=== PATIENT | female | born 1975 | race Caucasian/White ===

== ENCOUNTER 2017-08-21 13:17 | Emergency (ER) | payer OTHER ==
[~2017-08-21] VITALS: Ht 152.4 cm; Wt 125.0 kg
[2017-08-21] MEDS ORDERED: SUCRALFATE1 GM PO (15:44)
[2017-08-21] MEDS ORDERED: HYDROXYZ PAM25 MG PO (15:46)
[2017-08-21] MEDS ORDERED: NAPROXEN250 MG PO (15:46)
[2017-08-21] MEDS ORDERED: DULOXETINE HCL30 MG PO (15:47)
[2017-08-21] MEDS ORDERED: CYMBALTA60 MG PO (15:47)
[2017-08-21 16:35] VITALS: BP 118/66
== END 2017-08-21 16:35 | disposition home or self-care (01) | DRG 103 ==
LOC: ED 13:17
DX: R51 Headache (principal)

== ENCOUNTER 2017-12-07 10:13 | Emergency (ER) | payer OTHER ==
[~2017-12-07] VITALS: Ht 152.4 cm; Wt 116.4 kg
[~2017-12-07 10:13] MED LIST: ALBUTERO1 IN; BACTRIM DS1 TAB PO; CYMBALTA60 MG PO; DULOXETINE HCL30 MG PO; HYDROXYZ PAM25 MG PO; NAPROXEN250 MG PO; SUCRALFATE1 GM PO
[2017-12-07 11:10] LABS: HEMATOCRIT 39.7 % (37.0-47.0); HEMOGLOBIN 13.6 g/dl (12.0-16.0); IMMATURE GRANULOCYTES 0.5 % (0.0-5.0); MEAN CELL VOLUME 88.2 fL CALC (80.0-100.0); MEAN CORPUSCULAR HGB 30.2 pG CALC (26.0-32.0); MEAN CORPUSCULAR HGB CONC 34.3 g/L CALC (32.0-36.0); NEUT# 1.87 thou/uL (2.00-7.15); RED BLOOD COUNT 4.5 mill/uL (4.20-5.60); RED CELL DISTRI WIDTH 13.3 % (11.5-15.5)
[2017-12-07 11:21] LABS: ANION GAP 15 (6-22 (CALC)); BUN 10 mg/dL (7-17); BUN/CREATININE RATIO 17 (12-20 (CALC)); CARBON DIOXIDE 29 mmol/l (22-30); CHLORIDE 101 mmol/l (95-108); CREATININE 0.6 mg/dL (0.5-1.0); GFR > 60 ML/MIN (>=60 (CALC)); GFR FOR AFR.AMER. > 60 ML/MIN (>=60 (CALC)); POTASSIUM 3.7 mmol/l (3.5-5.1); SODIUM 141 mmol/l (137-146)
[2017-12-07] MEDS ORDERED: OMNICEF300 M1 PO (12:33)
[2017-12-07] MEDS ORDERED: BACTRIM DS1 TAB PO (12:33)
[2017-12-07 12:51] VITALS: BP 128/85
== END 2017-12-07 12:51 | disposition home or self-care (01) ==
LOC: ED 10:13
PROVIDERS: Family Medicine
DX: H00.031 Abscess of right upper eyelid (principal); M79.7 Fibromyalgia; D68.2 Hereditary deficiency of other clotting factors; F41.9 Anxiety disorder, unspecified; J45.909 Unspecified asthma, uncomplicated; H53.141 Visual discomfort, right eye; R22.0 Localized swelling, mass and lump, head
CPT/HCPCS: Q9967

== ENCOUNTER 2017-12-08 03:55 | Emergency (ER) | payer OTHER ==
[~2017-12-08] VITALS: Ht 152.4 cm; Wt 124.8 kg
[~2017-12-08 03:55] MED LIST changes: +OMNICEF300 M1 PO
[2017-12-08 06:31] VITALS: BP 164/92
== END 2017-12-08 06:31 | disposition home or self-care (01) ==
LOC: ED 03:55
DX: H00.031 Abscess of right upper eyelid (principal); M79.7 Fibromyalgia; D68.2 Hereditary deficiency of other clotting factors; F41.9 Anxiety disorder, unspecified; J45.909 Unspecified asthma, uncomplicated
CPT/HCPCS: J2020

== ENCOUNTER 2018-11-07 13:07 | Emergency (ER) | payer OTHER ==
[~2018-11-07] VITALS: Ht 152.4 cm; Wt 122.7 kg
[2018-11-07 13:46] LABS: HEMATOCRIT 38.4 % (37.0-47.0); HEMOGLOBIN 13.1 g/dl (12.0-16.0); IMMATURE GRANULOCYTES 0.2 % (0.0-5.0); MEAN CELL VOLUME 85.7 fL CALC (80.0-100.0); MEAN CORPUSCULAR HGB 29.2 pG CALC (26.0-32.0); MEAN CORPUSCULAR HGB CONC 34.1 g/L CALC (32.0-36.0); NEUT# 2.41 thou/uL (2.00-7.15); RED BLOOD COUNT 4.48 mill/uL (4.20-5.60); RED CELL DISTRI WIDTH 13.5 % (11.5-15.5)
[2018-11-07 14:02] LABS: INTERNATIONAL NORMALIZED RATIO 0.9 RATIO (0.7-1.3); PROTHROMBIN TIME 9.9 SECONDS (9.0-12.5)
[2018-11-07 14:03] LABS: ANION GAP 12 (6-22 (CALC)); BUN 6 mg/dL (7-17); BUN/CREATININE RATIO 9 (12-20 (CALC)); CARBON DIOXIDE 28 mmol/l (22-30); CHLORIDE 102 mmol/l (95-108); CREATININE 0.6 mg/dL (0.5-1.0); GFR > 60 ML/MIN (>=60 (CALC)); GFR FOR AFR.AMER. > 60 ML/MIN (>=60 (CALC)); POTASSIUM 3.9 mmol/l (3.5-5.1); SODIUM 139 mmol/l (137-146)
[2018-11-07 17:02] VITALS: BP 109/63
== END 2018-11-07 17:30 | disposition home or self-care (01) ==
LOC: ED 13:07
PROVIDERS: Family Medicine
DX: I82.411 Acute embolism and thrombosis of right femoral vein (principal); M79.604 Pain in right leg

== ENCOUNTER 2019-09-21 21:46 | Emergency (ER) | payer OTHER ==
[~2019-09-21] VITALS: Ht 152.4 cm; Wt 118.0 kg
[2019-09-21 22:26] LABS: URINE BILIRUBIN - DIPSTICK NEGATIVE (NEGATIVE); URINE BLOOD DIPSTICK LARGE (NEGATIVE); URINE CLARITY SL CLOUDY; URINE COLOR YELLOW; URINE GLUCOSE - DIPSTICK NEGATIVE (NEGATIVE); URINE KETONE NEGATIVE (NEGATIVE); URINE LEUK ESTERASE MODERATE (Negative); URINE NITRITE - DIPSTICK POSITIVE (Negative); URINE PROTEIN - DIPSTICK 100 mg/dL (NEG-TRACE); URINE SPECIFIC GRAVITY >=1.030; URINE UROBILINOGEN - DIPSTICK 0.2 E.U./dL (0.2)
[2019-09-21 22:47] LABS: URINE WBC 50-100 WBC/hpf (0-5)
[2019-09-21 22:48] VITALS: BP 135/72
[2019-09-21 22:48] LABS: URINE BACTERIA FEW hpf; URINE SQUAMOUS EPITHELIAL CELL FEW EPI/hpf (0-FEW)
[2019-09-21] MEDS ORDERED: PYRIDIUM200 MG PO (22:53)
[2019-09-21] MEDS ORDERED: BACTRIM DS1 TAB PO (22:53)
== END 2019-09-21 23:03 | disposition home or self-care (01) ==
LOC: ED 21:46
PROVIDERS: Emergency Medicine
DX: N39.0 Urinary tract infection, site not specified (principal); Z87.440 Personal history of urinary (tract) infections

== ENCOUNTER 2020-01-05 | Emergency (ER) | payer OTHER ==
[~2020-01-05] VITALS: Ht 152.4 cm; Wt 124.1 kg
[~2020-01-05] MED LIST changes: +PYRIDIUM200 MG PO
[2020-01-05] MEDS ORDERED: HYDROXYZ HCL25 MG PO (00:26)
[2020-01-05] MEDS ORDERED: NABUMETONE500 MG PO (00:27)
[2020-01-05] MEDS ORDERED: ESCITALOPRAM OX10 MG PO (00:28)
[2020-01-05] MEDS ORDERED: MIRTAZAPINE15 MG PO (00:28)
[2020-01-05 00:50] LABS: HEMATOCRIT 35.3 % (37.0-47.0); HEMOGLOBIN 11.8 g/dl (12.0-16.0); IMMATURE GRANULOCYTES 0.1 % (0.0-5.0); MEAN CELL VOLUME 87.2 fL CALC (80.0-100.0); MEAN CORPUSCULAR HGB 29.1 pG CALC (26.0-32.0); MEAN CORPUSCULAR HGB CONC 33.4 g/dL CAL (32.0-36.0); NEUT# 2.74 thou/uL (2.00-7.15); RED BLOOD COUNT 4.05 mill/uL (4.20-5.60); RED CELL DISTRI WIDTH 14.2 % (11.5-15.5)
[2020-01-05 01:06] LABS: ALBUMIN 4.1 g/dL (3.2-5.0); ALKALINE PHOSPHATASE 70 u/l (38-126); ANION GAP 12 (6-22 (CALC)); BILIRUBIN, TOTAL 0.5 mg/dL (0.0-1.4); BUN 10 mg/dL (7-17); BUN/CREATININE RATIO 15 (12-20 (CALC)); CARBON DIOXIDE 26 mmol/l (22-30); CHLORIDE 103 mmol/l (95-108); CREATININE 0.7 mg/dL (0.5-1.0); GFR > 60 ML/MIN (>=60 (CALC)); GFR FOR AFR.AMER. > 60 ML/MIN (>=60 (CALC)); POTASSIUM 3.8 mmol/l (3.5-5.1); SGOT/AST 24 u/l (14-36); SODIUM 138 mmol/l (137-146); TOTAL PROTEIN 7.6 g/dL (6.3-8.2)
[2020-01-05 01:09] LABS: D-DIMER 0.56 mg/L (0.19-0.60)
[2020-01-05 01:38] LABS: ACT PARTIAL THROMBO TIME 24.6 SECONDS (20.0-32.5)
[2020-01-05 01:40] VITALS: BP 109/59
== END 2020-01-05 01:47 | disposition home or self-care (01) ==
LOC: ED
PROVIDERS: Family Medicine
DX: R60.0 Localized edema (principal); D68.59 Other primary thrombophilia; F41.9 Anxiety disorder, unspecified; J45.909 Unspecified asthma, uncomplicated; Z86.718 Personal history of other venous thrombosis and embolism

== ENCOUNTER 2020-05-19 19:36 | Emergency (ER) | payer OTHER ==
[~2020-05-19] VITALS: Ht 152.4 cm; Wt 124.0 kg
[~2020-05-19 19:36] MED LIST changes: +ESCITALOPRAM OX10 MG PO; +HYDROXYZ HCL25 MG PO; +MIRTAZAPINE15 MG PO; +NABUMETONE500 MG PO
[2020-05-19 20:48] LABS: HEMATOCRIT 36.6 % (37.0-47.0); IMMATURE GRANULOCYTES 0.3 % (0.0-5.0); MEAN CELL VOLUME 85.5 fL CALC (80.0-100.0); MEAN CORPUSCULAR HGB CONC 32.8 g/dL CAL (32.0-36.0); NEUT# 2.45 thou/uL (2.00-7.15); RED BLOOD COUNT 4.28 mill/uL (4.20-5.60); RED CELL DISTRI WIDTH 14.4 % (11.5-15.5)
[2020-05-19 21:07] LABS: ALBUMIN 4.5 g/dL (3.2-5.0); ALKALINE PHOSPHATASE 76 u/l (38-126); ANION GAP 12 (6-22 (CALC)); BILIRUBIN, TOTAL 0.6 mg/dL (0.0-1.4); BUN 8 mg/dL (7-17); BUN/CREATININE RATIO 13 (12-20 (CALC)); CARBON DIOXIDE 30 mmol/l (22-30); CHLORIDE 98 mmol/l (95-108); CREATININE 0.7 mg/dL (0.5-1.0); GFR > 60 ML/MIN (>=60 (CALC)); GFR FOR AFR.AMER. > 60 ML/MIN (>=60 (CALC)); POTASSIUM 3.4 mmol/l (3.5-5.1); SGOT/AST 29 u/l (14-36); SODIUM 137 mmol/l (137-146); TOTAL PROTEIN 8.7 g/dL (6.3-8.2)
[2020-05-19 21:08] LABS: D-DIMER 1.06 mg/L (0.19-0.60)
[2020-05-19 21:13] LABS: ACT PARTIAL THROMBO TIME 23.5 SECONDS (20.0-32.5); PROTHROMBIN TIME 9.7 SECONDS (9.0-12.5)
[2020-05-19] MEDS ORDERED: VOLTAREN75 MG PO (21:37)
[2020-05-19 22:22] VITALS: BP 140/89
== END 2020-05-19 22:33 | disposition home or self-care (01) ==
LOC: ED 19:36
PROVIDERS: Family Medicine
DX: R60.0 Localized edema (principal); M17.0 Bilateral primary osteoarthritis of knee; D68.51 Activated protein C resistance; D18.03 Hemangioma of intra-abdominal structures; F41.9 Anxiety disorder, unspecified; J45.909 Unspecified asthma, uncomplicated; Z86.718 Personal history of other venous thrombosis and embolism

== ENCOUNTER 2021-03-27 03:48 | Emergency (ER) | payer OTHER ==
[~2021-03-27] VITALS: Ht 152.4 cm; Wt 123.0 kg
[~2021-03-27 03:48] MED LIST changes: +VOLTAREN75 MG PO
[2021-03-27 04:20] LABS: URINE BILIRUBIN - DIPSTICK NEGATIVE (NEGATIVE); URINE BLOOD DIPSTICK MODERATE (NEGATIVE); URINE COLOR YELLOW; URINE GLUCOSE - DIPSTICK NEGATIVE (NEGATIVE); URINE KETONE NEGATIVE (NEGATIVE); URINE PROTEIN - DIPSTICK TRACE mg/dL (NEG-TRACE); URINE SPECIFIC GRAVITY 1.025; URINE UROBILINOGEN - DIPSTICK 0.2 E.U./dL (0.2)
[2021-03-27 04:23] LABS: URINE LEUK ESTERASE SMALL (NEGATIVE); URINE NITRITE - DIPSTICK POSITIVE (Negative)
[2021-03-27 04:40] LABS: URINE BACTERIA FEW hpf; URINE SQUAMOUS EPITHELIAL CELL FEW EPI/hpf (0-FEW); URINE WBC 20-50 WBC/hpf (0-5)
[2021-03-27] MEDS ORDERED: BACTRIM DS1 TAB PO (04:49)
[2021-03-27 05:08] VITALS: BP 178/81
== END 2021-03-27 05:40 | disposition home or self-care (01) ==
LOC: ED 03:48
PROVIDERS: Family Medicine
DX: N39.0 Urinary tract infection, site not specified (principal); M79.7 Fibromyalgia; F41.9 Anxiety disorder, unspecified; J45.909 Unspecified asthma, uncomplicated; D68.2 Hereditary deficiency of other clotting factors; D68.59 Other primary thrombophilia; B96.20 Unspecified Escherichia coli [E. coli] as the cause of diseases classified elsewhere; Z86.718 Personal history of other venous thrombosis and embolism

== ENCOUNTER 2021-11-08 11:54 | Emergency (ER) | payer OTHER ==
[~2021-11-08] VITALS: Ht 152.4 cm; Wt 122.0 kg
[2021-11-08 12:40] LABS: URINE BILIRUBIN - DIPSTICK NEGATIVE (NEGATIVE); URINE BLOOD DIPSTICK SMALL (NEGATIVE); URINE GLUCOSE - DIPSTICK NEGATIVE (NEGATIVE); URINE KETONE NEGATIVE (NEGATIVE); URINE PROTEIN - DIPSTICK 30 mg/dL (NEG-TRACE); URINE SPECIFIC GRAVITY 1.015
[2021-11-08 12:41] LABS: URINE COLOR DK. YELLOW; URINE EPITHELIAL CELLS FEW EPI/hpf (0-FEW); URINE LEUK ESTERASE SMALL (NEGATIVE); URINE NITRITE - DIPSTICK POSITIVE (Negative); URINE RBC 0-2 RBC/hpf (0-5)
[2021-11-08 12:42] LABS: URINE BACTERIA FEW hpf
[2021-11-08] MEDS ORDERED: OMNI-PAC300 MG PO (12:50)
[2021-11-08] MEDS ORDERED: ZOFRAN4 MG/TAB PO (12:50)
[2021-11-08 13:35] VITALS: BP 119/75
[2021-11-08 13:45] VITALS: BP 109/73
[2021-11-08 14:00] VITALS: BP 100/65
[2021-11-08 14:04] VITALS: BP 100/65
== END 2021-11-08 14:13 | disposition home or self-care (01) ==
LOC: ED 11:54
PROVIDERS: Family Medicine
DX: N39.0 Urinary tract infection, site not specified (principal); B95.7 Other staphylococcus as the cause of diseases classified elsewhere; J45.909 Unspecified asthma, uncomplicated; F41.9 Anxiety disorder, unspecified; D68.59 Other primary thrombophilia; Z86.718 Personal history of other venous thrombosis and embolism

== ENCOUNTER 2022-02-08 18:37 | Emergency (ER) | payer OTHER ==
[~2022-02-08] VITALS: Ht 152.4 cm; Wt 120.0 kg
[~2022-02-08 18:37] MED LIST changes: +OMNI-PAC300 MG PO; +ZOFRAN4 MG/TAB PO
[2022-02-08 20:15] VITALS: BP 129/75
[2022-02-08 20:30] VITALS: BP 132/84
[2022-02-08 20:45] VITALS: BP 126/72
[2022-02-08] MEDS ORDERED: ROBITUSSIN AC10 ML PO (20:57)
[2022-02-08] MEDS ORDERED: ZITHROMAX250 MG PO (20:57)
[2022-02-08 21:14] VITALS: BP 126/72
== END 2022-02-08 21:25 | disposition home or self-care (01) ==
LOC: ED 18:37
DX: J06.9 Acute upper respiratory infection, unspecified (principal); M79.7 Fibromyalgia; F41.9 Anxiety disorder, unspecified; J45.909 Unspecified asthma, uncomplicated; D68.59 Other primary thrombophilia; Z86.718 Personal history of other venous thrombosis and embolism; Z87.440 Personal history of urinary (tract) infections; Z20.822 Contact with and (suspected) exposure to COVID-19

== ENCOUNTER 2022-09-06 13:20 | Emergency (ER) | payer OTHER ==
[~2022-09-06] VITALS: Ht 152.4 cm; Wt 136.6 kg
[2022-09-06] VITALS (10 sets, daily range): BP systolic 136–195; BP diastolic 87–114
[~2022-09-06 13:20] MED LIST changes: +ROBITUSSIN AC10 ML PO; +ZITHROMAX250 MG PO
[2022-09-06] MEDS ORDERED: VIBRAMYCIN100 M2 PO (14:52)
[2022-09-06] MEDS ORDERED: LISINOPRIL5 MG PO (14:52)
== END 2022-09-06 15:03 | disposition home or self-care (01) ==
LOC: ED 13:20
DX: K04.7 Periapical abscess without sinus (principal); K02.9 Dental caries, unspecified; M84.68XA Pathological fracture in other disease, other site, initial encounter for fracture; I10 Essential (primary) hypertension; T46.5X6A Underdosing of other antihypertensive drugs, initial encounter; Z91.128 Patient's intentional underdosing of medication regimen for other reason; M79.7 Fibromyalgia; D68.2 Hereditary deficiency of other clotting factors; F41.9 Anxiety disorder, unspecified; J45.909 Unspecified asthma, uncomplicated; Z86.718 Personal history of other venous thrombosis and embolism

== ENCOUNTER 2022-10-04 14:52 | Emergency (ER) | payer OTHER ==
[~2022-10-04] VITALS: Ht 152.4 cm; Wt 133.6 kg
[2022-10-04] VITALS (8 sets, daily range): BP systolic 107–140; BP diastolic 60–78
[~2022-10-04 14:52] MED LIST changes: +LISINOPRIL5 MG PO; +VIBRAMYCIN100 M2 PO
[2022-10-04] MEDS ORDERED: LISINOPRIL5 MG PO (15:07)
[2022-10-04 15:39] LABS: BASO% 0.3 % (0-3); IMMATURE GRANULOCYTES 0.4 % (0.0-5.0); LYMPH% 46.7 % (15-41); MEAN CELL VOLUME 84.2 fL CALC (80.0-100.0); MEAN CORPUSCULAR HGB CONC 32.1 g/dL CAL (32.0-36.0); NEUT# 4.16 thou/uL (2.00-7.15); NEUT% 40.6 % (42-76); RED BLOOD COUNT 5.56 mill/uL (4.20-5.60); RED CELL DISTRI WIDTH 14.4 % (11.5-15.5)
[2022-10-04 15:42] LABS: HEMATOCRIT 46.8 % (37.0-47.0)
[2022-10-04 15:57] LABS: ALBUMIN 4.5 g/dL (3.2-5.0); ALKALINE PHOSPHATASE 73 u/l (38-126); BUN 16 mg/dL (7-17); BUN/CREATININE RATIO 22 (12-20 (CALC)); CHLORIDE 104 mmol/l (95-108); CREATININE 0.7 mg/dL (0.5-1.0); GFR FOR AFR.AMER. > 60 ML/MIN (>=60 (CALC)); GFR OTHER RACES > 60 ML/MIN (>=60 (CALC)); POTASSIUM 3.7 mmol/l (3.5-5.1); SGOT/AST 31 u/l (14-36); SODIUM 138 mmol/l (137-146); TOTAL PROTEIN 8.6 g/dL (6.3-8.2)
[2022-10-04 16:04] LABS: ANION GAP 15 (6-22 (CALC)); BILIRUBIN, TOTAL 0.9 mg/dL (0.02-1.3); CARBON DIOXIDE 23 mmol/l (22-30)
[2022-10-04 18:25] LABS: URINE COLOR YELLOW
[2022-10-04 18:26] LABS: URINE BILIRUBIN - DIPSTICK NEGATIVE (NEGATIVE); URINE BLOOD DIPSTICK NEGATIVE (NEGATIVE); URINE GLUCOSE - DIPSTICK NEGATIVE (NEGATIVE); URINE KETONE Negative (NEGATIVE); URINE LEUK ESTERASE NEGATIVE (NEGATIVE); URINE NITRITE - DIPSTICK NEGATIVE (Negative); URINE PH 5.5 (4.5-8.0); URINE PROTEIN - DIPSTICK NEGATIVE (NEG-TRACE); URINE SPECIFIC GRAVITY 1.025; URINE UROBILINOGEN - DIPSTICK 0.2 E.U./dL (0.2)
== END 2022-10-04 19:33 | disposition home or self-care (01) ==
LOC: ED 14:52
PROVIDERS: Nurse Practitioner
DX: I10 Essential (primary) hypertension (principal); F41.9 Anxiety disorder, unspecified; J45.909 Unspecified asthma, uncomplicated; M79.7 Fibromyalgia; D68.2 Hereditary deficiency of other clotting factors; Z86.718 Personal history of other venous thrombosis and embolism

== ENCOUNTER 2023-09-15 14:34 | Emergency (ER) | payer OTHER ==
[2023-09-15] VITALS (15 sets, daily range): BP systolic 115–146; BP diastolic 75–99
[~2023-09-15] VITALS: Ht 152.4 cm; Wt 113.0 kg
[2023-09-15 15:15] LABS: BASO% 0.1 % (0-3); EOS% 0.9 % (0-8); HEMATOCRIT 42.6 % (37.0-47.0); HEMOGLOBIN 13.9 g/dl (12.0-16.0); IMMATURE GRANULOCYTES 0.4 % (0.0-5.0); MEAN CELL VOLUME 82.6 fL CALC (80.0-100.0); MEAN CORPUSCULAR HGB 26.9 pG CALC (26.0-32.0); MEAN CORPUSCULAR HGB CONC 32.6 g/dL CAL (32.0-36.0); MONO% 9.8 % (2-13); NEUT# 4.16 thou/uL (2.00-7.15); NEUT% 45.8 % (42-76); RED BLOOD COUNT 5.16 mill/uL (4.20-5.60); RED CELL DISTRI WIDTH 13.8 % (11.5-15.5)
[2023-09-15 15:19] LABS: ALBUMIN 4.3 g/dL (3.2-5.0); ALKALINE PHOSPHATASE 62 u/l (38-126); BILIRUBIN, TOTAL 0.9 mg/dL (0.02-1.3); BUN 10 mg/dL (7-17); BUN/CREATININE RATIO 17 (12-20 (CALC)); CARBON DIOXIDE 26 mmol/l (22-30); CREATININE 0.6 mg/dL (0.5-1.0); ESTIMATED GFR 111 ML/MIN (>=90 (CALC)); MAGNESIUM 1.7 mg/dL (1.6-2.3); POTASSIUM 3.6 mmol/l (3.5-5.1); SGOT/AST 34 u/l (14-36); SODIUM 136 mmol/l (137-146); TOTAL PROTEIN 8.3 g/dL (6.3-8.2)
[2023-09-15 15:21] LABS: ANION GAP 9 (6-22 (CALC)); CHLORIDE 105 mmol/l (95-108)
[2023-09-15 15:22] LABS: PROTHROMBIN TIME 9.5 SECONDS (9.0-12.5)
[2023-09-15] MEDS ORDERED: ASPIRIN 81 MG/TAB PO ONE (15:30)
[2023-09-15 19:18] LABS: URINE BILIRUBIN - DIPSTICK Negative (NEGATIVE); URINE BLOOD DIPSTICK Trace-intact (NEGATIVE); URINE COLOR Yellow; URINE GLUCOSE - DIPSTICK Negative (NEGATIVE); URINE KETONE Negative (NEGATIVE); URINE LEUK ESTERASE Negative (NEGATIVE); URINE NITRITE - DIPSTICK Negative (Negative); URINE PH 5.5 (4.5-8.0); URINE PROTEIN - DIPSTICK Negative (NEG-TRACE); URINE UROBILINOGEN - DIPSTICK 0.2 E.U./dL (0.2)
[2023-09-15] MEDS ORDERED: XANAX0.5 MG PO (19:44)
[2023-09-15] MEDS ORDERED: ALPRAZolam 1 MG/TAB PO ONE (19:45)
== END 2023-09-15 20:15 | disposition home or self-care (01) ==
LOC: ED 14:34
PROVIDERS: Nurse Practitioner
DX: R07.89 Other chest pain (principal); F41.9 Anxiety disorder, unspecified; D68.51 Activated protein C resistance; D68.59 Other primary thrombophilia; I10 Essential (primary) hypertension; M79.7 Fibromyalgia; J45.909 Unspecified asthma, uncomplicated; Z86.718 Personal history of other venous thrombosis and embolism; Z87.440 Personal history of urinary (tract) infections
CPT/HCPCS: Q9967

== ENCOUNTER 2023-10-12 13:59 | Emergency (ER) | payer OTHER ==
[2023-10-12] VITALS (10 sets, daily range): BP systolic 120–150; BP diastolic 68–108
[~2023-10-12] VITALS: Ht 152.4 cm; Wt 128.4 kg
[~2023-10-12 13:59] MED LIST changes: +XANAX0.5 MG PO
[2023-10-12] MEDS ORDERED: KETOROLAC TROMETHAMINE 30 MG/ML SDV IM ONE (14:25)
[2023-10-12] MEDS ORDERED: NAPROXEN500 MG PO (15:32)
[2023-10-12] MEDS ORDERED: METHOCARBAMOL500 MG PO (15:32)
== END 2023-10-12 16:22 | disposition home or self-care (01) ==
LOC: ED 13:59
DX: M77.31 Calcaneal spur, right foot (principal); E66.01 Morbid (severe) obesity due to excess calories; M79.7 Fibromyalgia; D68.2 Hereditary deficiency of other clotting factors; Z86.718 Personal history of other venous thrombosis and embolism; Z87.440 Personal history of urinary (tract) infections

== ENCOUNTER 2024-04-05 21:46 | Emergency (ER) | payer OTHER ==
[~2024-04-05] VITALS: Ht 152.4 cm; Wt 128.0 kg
[~2024-04-05 21:46] MED LIST changes: +DECADRON4 MG PO; +DOXYCYCLINE100 MG PO; +METHOCARBAMOL500 MG PO; +NAPROXEN500 MG PO; +PERCOCET 5/325M1 TAB PO
[2024-04-05 21:57] VITALS: BP 173/101
[2024-04-05 22:00] VITALS: BP 172/100
[2024-04-05] MEDS ORDERED: GABAPENTIN300 M2 PO (22:10)
[2024-04-05] MEDS ORDERED: DIATRIZOATE MEGLUMINE & SODIUM 30 ML/BTL PO ONE (22:15)
[2024-04-05] MEDS ORDERED: VANCOMYCIN HCL 1 GM in SODIUM CHLORIDE 0.9% 500 ML IV ONE (22:20)
[2024-04-05] MEDS ORDERED: oxyCODONE 5MG/ ACETAMINOPHEN 325MG TAB PO ONE (22:20)
[2024-04-05 22:36] LABS: BASO% 0.3 % (0-3); EOS% 0.7 % (0-8); HEMATOCRIT 37.1 % (37.0-47.0); HEMOGLOBIN 12.4 g/dl (12.0-16.0); LYMPH% 49.9 % (15-41); MEAN CELL VOLUME 84.5 fL CALC (80.0-100.0); MEAN CORPUSCULAR HGB 28.2 pG CALC (26.0-32.0); MEAN CORPUSCULAR HGB CONC 33.4 g/dL CAL (32.0-36.0); MONO% 12.9 % (2-13); NEUT# 2.47 thou/uL (2.00-7.15); NEUT% 36.2 % (42-76); RED BLOOD COUNT 4.39 mill/uL (4.20-5.60); RED CELL DISTRI WIDTH 13.8 % (11.5-15.5)
[2024-04-05] MEDS ORDERED: MORPHINE SULFATE 4 MG/ML VIAL IV ONE (22:40)
[2024-04-05] MEDS ORDERED: ONDANSETRON HCl 4 MG/2 ML SDV IV ONE (22:40)
[2024-04-05 22:50] LABS: ALBUMIN 4.5 g/dL (3.2-5.0); BILIRUBIN, TOTAL 0.7 mg/dL (0.02-1.3); C-REACTIVE PROTEIN 2.3 mg/dL (0-0.9); CREATININE 0.8 mg/dL (0.5-1.0); POTASSIUM 4.1 mmol/l (3.5-5.1)
[2024-04-05 22:57] LABS: INTERNATIONAL NORMALIZED RATIO 0.9 RATIO (0.7-1.3)
[2024-04-05 22:58] LABS: PROTHROMBIN TIME 9.7 SECONDS (9.0-12.5)
[2024-04-05 23:00] VITALS: BP 144/91
[2024-04-06] VITALS (10 sets, daily range): BP systolic 120–159; BP diastolic 62–91
[2024-04-06] MEDS ORDERED: LIDOCAINE21 MT (03:15)
[2024-04-06] MEDS ORDERED: PERCOCET 5/325M1 TAB PO (03:15)
[2024-04-06] MEDS ORDERED: DOXYCYCL HYC100 M4 PO (03:15)
== END 2024-04-06 04:45 | disposition home or self-care (01) ==
LOC: ED 21:46
PROVIDERS: Family Medicine
DX: K61.1 Rectal abscess (principal); D68.2 Hereditary deficiency of other clotting factors; D68.59 Other primary thrombophilia; Z98.890 Other specified postprocedural states
CPT/HCPCS: J0696; J2405; J3370; Q9967